=== PATIENT | male | born 1990 | race Caucasian/White ===

== ENCOUNTER 2020-08-29 17:09 | Emergency (ER) | payer OTHER ==
[~2020-08-29] VITALS: Ht 190.5 cm; Wt 74.4 kg
--- NOTE | 2020-08-29 17:15 | NUR ---
PATIENT A/OX4, BREATHING EVEN AND UNLABORED, NO SOB NOTED. NEEDS ATTENDED.
--- NOTE | 2020-08-29 17:17 | NUR ---
[id number], PER REPORT WITNESSED SEIZURE X TODAY. PT IS ALERT STATES MISSED HIS KEPPRA TODAY. BG 86 VP PLATFORMS. PATIENT A/OX4, VERBALLY RESPONSIVE.
[2020-08-29] MEDS ORDERED: IV NS 0.9% 1,000 ML BAG IV ONE (18:00)
[2020-08-29] MEDS ORDERED: LEVETIRACETAM (500MG) 1,000 MG in IV NS 0.9% 100 ML IV ONE (18:00)
[2020-08-29] MEDS ORDERED: AMOX/CLAVULANATE 875 MG TABLET PO ONE (18:00)
--- NOTE | 2020-08-29 18:06 | NUR ---
IV LINE ESTABLISHED, BLOOD DRAWN AND SENT TO LAB.
[2020-08-29] MEDS ORDERED: AMOX/CLAVULANATE 875 MG TABLET ONE (18:09)
[2020-08-29 18:12] LABS: BASOPHILS # (AUTO) 0.1 /CMM (0.0-0.2); BASOPHILS % (AUTO) 0.7 % (0.0-2.0); EOSINOPHILS % (AUTO) 1.3 % (0.0-6.0); HEMATOCRIT 45 % (39-51); HEMOGLOBIN 15.1 g/dL (13.5-17.5); LYMPHOCYTES # (AUTO) 1.9 /CMM (0.8-4.8); MEAN CORPUSCULAR HGB CONC 33 g/dl (31.0-36.0); MEAN CORPUSCULAR VOLUME 93 fL (80-96); MONOCYTES % (AUTO) 11.2 % (2.0-12.0); NEUTROPHILS # (AUTO) 5.6 /CMM (1.8-8.9); NEUTROPHILS % (AUTO) 64.8 % (43.0-81.0); PLATELET COUNT (AUTO) 237 /CMM (150-450); RED BLOOD CELL COUNT(AUTO) 4.87 MIL/uL (4.5-6.0); WHITE BLOOD COUNT (AUTO) 8.7 K/uL (4.3-11.0)
[2020-08-29 18:27] LABS: CALCIUM, SERUM 8.9 mg/dL (8.5-10.1); CREATININE 0.7 mg/dL (0.6-1.3); POTASSIUM 4.1 mmol/L (3.5-5.1)
[2020-08-29] MEDS ORDERED: CLOTRIMAZOLE 1% 15 GM TUBE TP SCH (18:30)
[2020-08-29] MEDS ORDERED: LEVE750T10 PO (19:02)
[2020-08-29] MEDS ORDERED: AMOX-430 PO (19:02)
--- NOTE | 2020-08-29 19:22 | NUR ---
Patient a/ox4, verbally responsive. No distress noted. No seizure episode at this time. IV removed. Catheter intact and site benign. Pressure and 4x4 applied to site. No bleeding noted.Patient discharged to home in stable condition. Written and verbal after care instructions given. Patient verbalizes understanding of instruction.
[2020-08-29 19:23] VITALS: BP 153/69
== END 2020-08-29 19:23 ==
LOC: ER 17:15
DX: S61.411A Laceration without foreign body of right hand, initial encounter (principal); S91.331A Puncture wound without foreign body, right foot, initial encounter; G40.409 Other generalized epilepsy and epileptic syndromes, not intractable, without status epilepticus; F15.10 Other stimulant abuse, uncomplicated; B35.3 Tinea pedis; Z59.0 Homelessness; Z79.899 Other long term (current) drug therapy; W54.0XXA Bitten by dog, initial encounter; Y93.89 Activity, other specified; Y92.89 Other specified places as the place of occurrence of the external cause; Y99.8 Other external cause status
CPT/HCPCS: 36415; 80048; 85025; 96365; 99284; J1953; J7030 ×2